=== PATIENT | female | born 1975 | race Caucasian/White ===

== ENCOUNTER → 2020-06-29 | Outpatient (CLI) | payer BC ==
--- NOTE | 2020-06-29 12:41 | Diagnostic Imaging Report ---
INDICATION: Screening for osteoporosis, family history of osteoporosis, osteoarthritis. COMPARISON: None available. FINDINGS: AP Spine L1-L4: [BMD (g/cm2): 1.431] [T-Score: 1.9] [Z-Score: 1.5] [BMD Previous: na] [BMD % Change: na] LT Hip Neck: [BMD (g/cm2): 0.951] [T-Score: -0.6] [Z-Score: -0.4] LT Hip Total: [BMD (g/cm2):1.011] [T-Score:0.0] [Z-Score: 0.0] [BMD Previous: na] [BMD % Change: na] RT Hip Neck: [BMD (g/cm2):0.951] [T-Score:-0.6] [Z-Score:-0.4] RT Hip Total: [BMD (g/cm2):0.976] [T-score:-0.3] [Z-Score:-0.3] [BMD Previous:na] [BMD % Change:na] *Indicates significant change from prior examination based on 95% confidence level. World Health Organization criteria for BMD interpretation classify patients as Normal (T-score at or above -1.0), Osteopenic (T-score between -1.0 and -2.5) or Osteoporotic (T-score at or below -2.5). LIMITATIONS AND MODIFICATION: None. IMPRESSION: 1. Normal bone mineral density. 2. No prior examination is available for comparison. 3. See below National Osteoporosis Foundation guidelines on when to potentially initiate pharmacologic therapy. Based on the National Osteoporosis Foundation Guidelines, pharmacologic treatment should be initiated in any of the following, unless clinical conditions suggest otherwise: * Any patient with prior fragility fracture of the hip or vertebrae. A spine fracture indicates 5X risk for subsequent spine fracture and 2X risk for subsequent hip fracture. * Osteoporosis (T-score <-2.5). * Postmenopausal women and men age 50 and older with low bone mass/osteopenia (T-score between -1.0 and -2.5) by DXA and 10-year major osteoporotic fracture greater than 20% or a 10-year probability of hip fracture greater than 3%. These fracture risks are supplied above in the FRAX score, if applicable. * Clinician judgement and/or patient preferences may indicate treatment for people with 10-year fracture probabilities above or below these levels. Dictated by: Dictated on workstation # [id number]
== END ==
LOC: RAD 11:00
PROVIDERS: ATTEND Family Medicine
DX: Z13.820 Encounter for screening for osteoporosis (principal); Z82.61 Family history of arthritis
CPT/HCPCS: 77080

== ENCOUNTER 2021-01-08 14:39 | Observation (INO) | payer OTHER, BC ==
[2021-01-08] VITALS (10 sets, daily range): BP systolic 96–121; BP diastolic 60–85
[~2021-01-08] VITALS: Ht 170 cm; Wt 87.8 kg
[2021-01-08] MEDS ORDERED: DEXTROSE 50% 50 ML (IMS) SYR ONE (14:53)
[2021-01-08 14:56] LABS: BILIRUBIN,URINE NEGATIVE (NEGATIVE); CLARITY,URINE CLEAR; COLOR,URINE YELLOW; GLUCOSE, URINE (UA) NEGATIVE (NEGATIVE); KETONES,URINE NEGATIVE (NEGATIVE); LEUKOCYTE ESTERASE ,URINE NEGATIVE (NEGATIVE); NITRITE,URINE NEGATIVE (NEGATIVE); PH,URINE 6.5 (5-9); PROTEIN,URINE NEGATIVE (NEGATIVE)
[2021-01-08] MEDS ORDERED: D5 NS 1000 ML IV SOLUTION 1,000 ML IV ONE ×2 (14:56→15:00)
[2021-01-08 14:58] LABS: HEMATOCRIT 43 % (35-52); HEMOGLOBIN 14.5 g/dL (11.5-16.0); MEAN CORPUSCULAR HEMOGLOBIN 33 pg (25-34); MEAN CORPUSCULAR HGB CONC 34 g/dL (32-36); MEAN CORPUSCULAR VOLUME 98 fL (80-99); MEAN PLATELET VOLUME 8.8 fL (9.0-12.2); PLATELET COUNT 302 10^3/uL (130-400); WHITE BLOOD COUNT 5.3 10^3/uL (4.3-11.0)
[2021-01-08 15:03] LABS: BACTERIA,URINE NEGATIVE /HPF; SQUAMOUS EPITHELIAL CELL,UR RARE /HPF
[2021-01-08 15:07] LABS: ALBUMIN 4.3 GM/DL (3.2-4.5); POTASSIUM 3.7 MMOL/L (3.6-5.0)
[2021-01-08 15:09] LABS: CALCIUM 8.6 MG/DL (8.5-10.1)
[2021-01-08 15:09] LABS: AMPHETAMINE SCREEN, URINE NEGATIVE (NEGATIVE); BARBITURATE SCREEN URINE NEGATIVE (NEGATIVE); BENZODIAZEPINES SCREEN URINE NEGATIVE (NEGATIVE); CANNABINOID SCREEN, URINE NEGATIVE (NEGATIVE); COCAINE SCREEN URINE NEGATIVE (NEGATIVE); METHADONE STAT NEGATIVE (NEGATIVE); METHAMPHETAMINE SCREEN URINE S NEGATIVE (NEGATIVE); OPIATE SCREEN URINE NEGATIVE (NEGATIVE); OXYCODONE STAT NEGATIVE (NEGATIVE); PROPOXYPHENE STAT NEGATIVE (NEGATIVE); TRICYCLIC ANTIDEPRESSANTS SCRE NEGATIVE (NEGATIVE)
[2021-01-08 15:10] LABS: TOTAL PROTEIN 7.1 GM/DL (6.4-8.2)
[2021-01-08 15:12] LABS: BILIRUBIN,TOTAL 0.2 MG/DL (0.1-1.0)
[2021-01-08 15:14] LABS: CREATININE SERUM 0.89 MG/DL (0.60-1.30)
[2021-01-08 15:15] LABS: BILIRUBIN,DIRECT 0.1 MG/DL (0.0-0.3); BILIRUBIN,INDIRECT 0.1 MG/DL
[2021-01-08] MEDS ORDERED: HOLD METFORMIN - RECEIVED CONTRAST 20 ML VIAL IV SCH (15:15)
[2021-01-08] MEDS ORDERED: NS 100 ML (IVPB) BAG IV ONE (15:15)
[2021-01-08] MEDS ORDERED: IOHEXOL 350 MG/ML 100 ML (OMNIPAQUE 350) VIAL IV ONE (15:15)
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
[2021-01-08 18:17] LABS: POTASSIUM 3.9 MMOL/L (3.6-5.0)
[2021-01-08 18:18] LABS: CALCIUM 8.2 MG/DL (8.5-10.1)
[2021-01-08 18:23] LABS: CREATININE SERUM 0.89 MG/DL (0.60-1.30)
[2021-01-08] MEDS ORDERED: D5 1/2 NS W/KCL 20 MEQ/L 0 ML IV ONE (18:38)
[2021-01-08] MEDS ORDERED: D5 NS W/KCL 20 MEQ/L 1,000 ML IV ONE (18:40)
[2021-01-08] MEDS ORDERED: ANTACID SUSP 30 ML UDC (MYLANTA) PO PRN (20:45)
[2021-01-08] MEDS ORDERED: 1/2 NS IV SOLUTION 1,000 ML IV PRN (20:45)
[2021-01-08] MEDS ORDERED: LORazepam INJ 2 MG/ML (ATIVAN) VIAL IV PRN (20:45)
[2021-01-08] MEDS ORDERED: ONDANSETRON 4 MG/2 ML (SDV) Z0FRAN IV PRN (20:45)
[2021-01-08] MEDS ORDERED: LORazepam INJ 2 MG/ML (ATIVAN) VIAL IM/IV PRN (20:45)
[2021-01-08] MEDS ORDERED: IBUPROFEN TABLET 200 MG TAB PO PRN (20:45)
[2021-01-08] MEDS ORDERED: D5 1/2 NS 1000 ML IV SOLUTION 1,000 ML IV PRN (20:45)
[2021-01-08] MEDS ORDERED: SENNA W/DOCUSATE (SENOKOT S) TABLET PO PRN (20:45)
[2021-01-08] MEDS ORDERED: LORazepam 1 MG (ATIVAN) TAB PO PRN (20:45)
[2021-01-08] MEDS ORDERED: ONDANSETRON 4 MG (ZOFRAN) ORAL DISSOLVE TAB SL PRN (20:45)
[2021-01-08] MEDS: FAMOTIDINE 20MG/2ML IV (PEPCID) IV SCH (21:19)
[2021-01-08] MEDS: D5 1/2 NS W/KCL 20 MEQ/L 1,000 ML IV SCH (21:23)
[2021-01-09] VITALS (12 sets, daily range): BP systolic 92–146; BP diastolic 57–98
[2021-01-09] MEDS: D5 1/2 NS W/KCL 20 MEQ/L 1,000 ML IV SCH (04:05)
[2021-01-09 04:48] LABS: POTASSIUM 4.4 MMOL/L (3.6-5.0)
[2021-01-09 04:49] LABS: CALCIUM 7.8 MG/DL (8.5-10.1)
[2021-01-09 04:53] LABS: CREATININE SERUM 0.89 MG/DL (0.60-1.30); PHOSPHORUS 2.3 MG/DL (2.3-4.7)
[2021-01-09 05:49] LABS: BASOPHILS # (AUTO) 0.1 10^3/uL (0.0-0.1); BASOPHILS % (AUTO) 1 % (0-10); EOSINOPHILS % (AUTO) 1 % (0-10); HEMATOCRIT 40 % (35-52); HEMOGLOBIN 13.2 g/dL (11.5-16.0); LYMPHOCYTES # (AUTO) 1.5 10^3/uL (1.0-4.0); LYMPHOCYTES % (AUTO) 27 % (12-44); MEAN CORPUSCULAR HEMOGLOBIN 33 pg (25-34); MEAN CORPUSCULAR HGB CONC 33 g/dL (32-36); MEAN CORPUSCULAR VOLUME 100 fL (80-99); MEAN PLATELET VOLUME 8.9 fL (9.0-12.2); MONOCYTES # (AUTO) 0.6 10^3/uL (0.0-1.0); MONOCYTES % (AUTO) 10 % (0-12); NEUTROPHILS # (AUTO) 3.5 10^3/uL (1.8-7.8); NEUTROPHILS % (AUTO) 61 % (42-75); PLATELET COUNT 249 10^3/uL (130-400); WHITE BLOOD COUNT 5.8 10^3/uL (4.3-11.0)
[2021-01-09] MEDS ORDERED: MAGNESIUM 1 GM/100 ML IVPB 100 ML IV SCH (06:00)
[2021-01-09] MEDS ORDERED: POTASSIUM CL 10MEQ/50ML IVPB 50 ML IV SCH (06:00)
[2021-01-09] MEDS ORDERED: KCL 20 MEQ TAB (K-DUR) PO SCH (06:00)
[2021-01-09] MEDS ORDERED: THIAMINE INJECTION 100 MG, FOLIC ACID INJECTION 1 MG, MAGNESIUM SULFATE 2 GM, VITAMIN M... IV SCH ×5 (09:00)
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
[2021-01-09] MEDS: FAMOTIDINE 20MG/2ML IV (PEPCID) IV SCH (10:19)
[2021-01-09] MEDS ORDERED: LACTATED RINGERS 1,000 ML IV SCH (11:00)
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
== END 2021-01-09 13:30 | disposition home or self-care (01) ==
LOC: EDUNIT# 14:39 → ER 14:40 → ICU 16:11
PROVIDERS: ADMIT Internal Medicine; ATTEND Internal Medicine
DX: F10.229 Alcohol dependence with intoxication, unspecified (principal); F32.A Depression, unspecified; G43.909 Migraine, unspecified, not intractable, without status migrainosus; T51.91XA Toxic effect of unspecified alcohol, accidental (unintentional), initial encounter; Y90.0 Blood alcohol level of less than 20 mg/100 ml; V89.2XXA Person injured in unspecified motor-vehicle accident, traffic, initial encounter; F41.9 Anxiety disorder, unspecified; Z79.899 Other long term (current) drug therapy
CPT/HCPCS: 51702; 70450; 71045; 71260; 72125; 80048 ×2; 80076; 80306; 81000; 82947; 83735; 84100; 84703; 85025; 85027; 87081; 93005; 93041; 99291; G0480; 36415; 80320; G0378